=== PATIENT | male | born 1970 | race African-American/Black ===

== ENCOUNTER 2017-02-22 21:38 | Emergency (ER) | payer OTHER ==
[2017-02-22 21:49] VITALS: BP 142/103; PULSE 70; TEMP 98.5; BMI 26.4
--- NOTE | 2017-02-22 23:39 | PDOC ---
History of Present Illness - General Chief Complaint: Pain Stated Complaint: PAIN Time Seen by Provider: 02/22/17 23:33 History Source: Patient - History of Present Illness Initial Comments: 02/22/17 23:39 CC: R shoulder pain Patient is a 46 y.o. male with no significant PMH who presents to the ED tonight c/o progressive h/o 1 month shoulder pain. 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 Patient describes the pain as 10/10, "shooting" and constant. Patient states he initially tried Ibuprofen and time off work, however his pain did not resolve but increased prompting his visit to the ED today. Patient denies any chest pain, shortness of breath, fevers, chills, nausea, vomiting or diarrhea. Past History - Past Medical History Allergies/Adverse Reactions: Allergies Allergy/AdvReac Type Severity Reaction Status Date / Time No Known Allergies Allergy Verified 02/22/17 21:50 Home Medications: Ambulatory Orders Ibuprofen [Motrin -] 600 mg PO TID #21 tablet 02/23/17 Other medical history: DENIES - Psycho/Social/Smoking Cessation Hx Suicidal Ideation: No Smoking History: Never smoked Review of Systems - Review of Systems Constitutional: No: Chills, Diaphoresis, Fever, Unintentional Wgt. Loss HEENTM: No: Blurred Vision, Hearing Loss Respiratory: No: Cough, Orthopnea Cardiac (ROS): No: Chest Pain, Edema, Irregular Heart Rate, Lightheadedness ABD/GI: No: Diarrhea, Nausea, Vomiting : No: Burning, Dysuria Musculoskeletal: Yes: Muscle Pain Integumentary: No: Bruising, Erythema Neurological: No: Numbness, Tingling All Other Systems: Reviewed and Negative *Physical Exam - Vital Signs Last Vital Signs Temp Pulse Resp BP Pulse Ox 98.5 F 70 18 142/103 96 02/22/17 21:46 02/22/17 21:46 02/22/17 21:46 02/22/17 21:46 02/22/17 21:46 - Physical Exam General Appearance: Yes: Nourished, Appropriately Dressed HEENT: positive: EOMI, JUAQUIN, Other (B/L conjunctival injection) Respiratory/Chest: positive: Lungs Clear, Normal Breath Sounds Cardiovascular: positive: Regular Rhythm, Regular Rate, S1, S2 Gastrointestinal/Abdominal: positive: Normal Bowel Sounds, Soft Musculoskeletal: positive: Other (R shoulder: full ROM, however significant pain on abduction; neurovascularly intact) Integumentary: positive: Normal Color, Dry, Warm Neurologic: positive: Fully Oriented, Alert Medical Decision Making - Medical Decision Making 02/23/17 06:12 Patient is a 46 y.o. male who presents to the ED today c/o increasingly painful R shoulder pain likely secondary to lifting boxes at work. On PE, patient's RUE was neurovasculary intact with full ROM. Wet read of the R Humeral and R shoulder x-rays showed no fracture, subluxation or humeral head dislocation. Patient was discharged home with instruction to make a follow-up appointment with orthopedic surgery if his pain did not resolve over the coming 1-2 weeks. *DC/Admit/Observation/Transfer Diagnosis at time of Disposition: Shoulder pain - Discharge Dispostion Disposition: HOME Condition at time of disposition: Good - Prescriptions Prescriptions: Ibuprofen [Motrin -] 600 mg PO TID #21 tablet - Referrals Referrals: Dawna Sadler MD [Primary Care Provider] - Shawn Cope MD [Staff Physician] - - Patient Instructions Printed Discharge Instructions: Shoulder Sprain Additional Instructions: Please return to the ED should you experience any fevers, chills, shortness of breath or chest pain. Please call Dr. Cope for an appointment if your pain persists. - Post Discharge Activity Work/School Note: Back to Work
[2017-02-22] MEDS ORDERED: IBUPROFEN 600 MG TABLET (FP) PO ONE (23:42)
[2017-02-23] MEDS ORDERED: IBUPROFEN 600 MG TABLET (FP) PO ONE ×2 (00:26→00:32)
--- NOTE | 2017-02-23 00:41 | PDOC ---
Attending Attestation - Resident Resident Name: Pat Becerra - ED Attending Attestation I have performed the following: I have examined & evaluated the patient, The case was reviewed & discussed with the resident, I agree w/resident's findings & plan, Exceptions are as noted - HPI HPI: 02/23/17 00:38 46 yo M with c/o right shoulder pain x 2 months. no injuries. does physical work at job, al lot of lifting. also c/o right trapezial pain worse with turning head. has not taken any pain medication. . no new numbness or tingling. no cp no sob. no elbow or wrist pain. pain worse with abduction and ext rotation. 02/23/17 00:41 02/23/17 00:41 02/23/17 00:41 - Physicial Exam PE: 02/23/17 00:41 on exam awake alert lungs clear heart rrr nomrg. abd soft nt. right shoulder anterior ttp. pain at abduction 90deg, and external rotation. no midline spinal tenderness, trapezial m. spasm. nuero intact bilt upper ext. 02/23/17 00:41 - Medical Decision Making 02/23/17 00:41 02/23/17 00:41 plan xray pain control ortho followup outp. 02/23/17 00:41 xray negative for fracture.
== END 2017-02-23 00:48 | disposition home or self-care (01) ==
LOC: JER 21:38
DX: M25.511 Pain in right shoulder (principal); X50.0XXA Overexertion from strenuous movement or load, initial encounter; Y93.89 Activity, other specified; Y92.59 Other trade areas as the place of occurrence of the external cause; Y99.0 Civilian activity done for income or pay
CPT/HCPCS: 73030-TC-RT; 73060-TC-RT; 99282-25

== ENCOUNTER 2018-03-26 12:34 | Emergency (ER) | payer OTHER ==
[2018-03-26 12:43] VITALS: BP 167/90; PULSE 69; TEMP 98.5; BMI 26.4
[2018-03-26] MEDS ORDERED: KETOROLAC TROMETHAMINE 60 MG/2 ML VIAL IM ONE (13:07)
--- NOTE | 2018-03-26 13:07 | PDOC ---
History of Present Illness - General Chief Complaint: Back Pain Stated Complaint: BACK PAIN Time Seen by Provider: 03/26/18 12:55 History Source: Patient - History of Present Illness Initial Comments: 03/26/18 13:21 Chief complaint: Back pain Patient 47-year-old male with no significant medical problems with pain to the right lower back gets worse with moving and worse when he gets up in the morning for the last 3 days. History of similar in the past, has not come to the ER for this in the past. 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 No numbness, saddle anesthesia or incontinence. Patient otherwise feels well. Patient did not take any any pain medicine prior to coming to the ER. GENERAL: The patient is awake, alert, and fully oriented, in no acute distress. HEAD: Normal with no signs of trauma. EYES: Pupils equal, round and reactive to light, sclera anicteric, conjunctiva clear. ENT: pharynx: no erythema, no exudate, uvula midline NECK: supple CHEST: clear, nontender, rr ABD: soft, nontender BACK: Minimal tenderness to the area to the right lats, no CVAT and no pain without movement EXTREMITIES: Normal range of motion, no edema. Trace 5 out of 5 upper and lower extremities, neurovascular intact NEUROLOGICAL: Normal speech, normal gait. SKIN: Warm, Dry 03/26/18 13:24 Past History - Past Medical History Allergies/Adverse Reactions: Allergies Allergy/AdvReac Type Severity Reaction Status Date / Time No Known Allergies Allergy Verified 03/26/18 12:40 Home Medications: Ambulatory Orders NK [No Known Home Medication] 03/26/18 COPD: No - Suicide/Smoking/Psychosocial Hx Smoking History: Never smoked Have you smoked in the past 12 months: No Information on smoking cessation initiated: No Hx Alcohol Use: No Drug/Substance Use Hx: No Substance Use Type: None *Physical Exam - Vital Signs Last Vital Signs Temp Pulse Resp BP Pulse Ox 98.5 F 69 18 167/90 100 03/26/18 12:41 03/26/18 12:41 03/26/18 12:41 03/26/18 12:41 03/26/18 12:41 Medical Decision Making - Medical Decision Making 03/26/18 13:23 Healthy 47-year-old male who lifts heavy things at work with some Left lower back pain, localized to the muscle area, with pain with movement. No incontinence, numbness or saddle anesthesia. Patient is neurologically intact. No indication for imaging. Patient did not take any pain medicine. Exam is consistent with muscle strain. Give Toradol and instructed to take Motrin and give orthopedic follow-up *DC/Admit/Observation/Transfer Diagnosis at time of Disposition: Back sprain - Discharge Dispostion Disposition: HOME Condition at time of disposition: Stable Decision to Admit order: No - Referrals Referrals: Shine Pena MD [Staff Physician] - - Patient Instructions Printed Discharge Instructions: Low Back Pain Additional Instructions: No heavy lifting or bending Apply ice to the area 20 minutes every 2 hours for the next 2 days Continue taking Motrin 600 mg every 6 hours for pain. Return to the nearest ER if numbness, weakness, severe pain, problems with urinating or having bowel movements. Call orthopedist today for an appointment for further evaluation - Post Discharge Activity
[2018-03-26] MEDS ORDERED: KETOROLAC TROMETHAMINE 60 MG/2 ML VIAL ONE (13:10)
== END 2018-03-26 13:26 | disposition home or self-care (01) ==
LOC: JERFT 12:34
PROC: 3E0233Z Introduction of Anti-inflammatory into Muscle, Percutaneous Approach (ICD-10-PCS; principal; 2018-03-26)
DX: S39.012A Strain of muscle, fascia and tendon of lower back, initial encounter (principal); S33.5XXA Sprain of ligaments of lumbar spine, initial encounter; X50.0XXA Overexertion from strenuous movement or load, initial encounter; Y93.89 Activity, other specified; Y92.59 Other trade areas as the place of occurrence of the external cause; Y99.0 Civilian activity done for income or pay
CPT/HCPCS: 99281-25